=== PATIENT | female | born 1980 | race Caucasian/White ===

== ENCOUNTER 2019-10-31 17:14 | Emergency (ER) | payer MEDICAID ==
[~2019-10-31] VITALS: Ht 160 cm; Wt 51.9 kg
[2019-10-31 18:06] VITALS: BP 121/74
--- NOTE | 2019-10-31 18:46 | PHYS DOC ---
Past Medical History Past Medical History: Asthma Past Surgical History: Tonsillectomy Additional Past Surgical Histo: WRIST Smoking Status: Current Every Day Smoker Alcohol Use: None General Adult EDM: Chief Complaint: SORE THROAT HPI: HPI: Patient is a 39 year old female who presents with complaints of a sore throat today. Patient does have a history of allergic rhinitis and allergic asthma and actually carries an EpiPen around with her. Patient reports that she is not having any difficulty with cough or shortness of breath at this time but is concerned about the amount of pain that she is having with swallowing. She does complain of some upper respiratory congestion and postnasal drip but denied any fever, chills, sweats. She also denies any chest pain or shortness of breath. No sick contacts. Patient brings her daughter in with her with similar symptoms. Review of Systems: Review of Systems: Constitutional: Denies fever or chills. [] Eyes: Denies change in visual acuity. [] HENT: See HPI. [] Respiratory: Denies cough or shortness of breath. [] Cardiovascular: Denies chest pain or edema. [] Heart Score: Risk Factors: Risk Factors: DM, Current or recent (<one month) smoker, HTN, HLP, family history of CAD, obesity. Risk Scores: Score 0 - 3: 2.5% MACE over next 6 weeks - Discharge Home Score 4 - 6: 20.3% MACE over next 6 weeks - Admit for Clinical Observation Score 7 - 10: 72.7% MACE over next 6 weeks - Early Invasive Strategies Allergies: Allergies: Allergies Coded Allergies Type Severity Reaction Last Updated Verified Penicillins Allergy Severe HIVES 10/31/19 Yes Physical Exam: PE: Constitutional: Well developed, well nourished, no acute distress, non-toxic appearance. [] HENT: Normocephalic, atraumatic, bilateral external ears normal, TMs bilaterally with some mild air-fluid levels without erythema or exudative changes, posterior oropharynx with mild erythema and cobblestoning, no exudative changes. Nasal mucosa were pale, no blood in the nares.. [] Eyes: PERRLA, EOMI, conjunctiva normal, no discharge. [] Neck: Normal range of motion, no tenderness, supple, no stridor. [] Current Patient Data: Vital Signs: Vital Signs Date Time Temp Pulse Resp B/P (MAP) Pulse Ox O2 Delivery O2 Flow Rate FiO2 10/31/19 18:06 98.2 66 18 121/74 (90) 100 Room Air 98.2 EKG: EKG: [] Radiology/Procedures: Radiology/Procedures: [] Course & Med Decision Making: Course & Med Decision Making Pertinent Labs and Imaging studies reviewed. (See chart for details) 1844-the patient was seen and examined. No evidence of an exigent medical or surgical problems identified at this time. Patient did not appear to be in any respiratory distress and is not concerned about her breathing at this time. I discussed with her treatment plan including Depo-Medrol, Flonase and [id number] decongestant antihistamines. No role for antibiotics at this time. I discussed reasons to return, treatment plan and need for follow-up. [] Brianna Disclaimer: Brianna Disclaimer: This electronic medical record was generated, in whole or in part, using a voice recognition dictation system. Departure Departure Impression: Primary Impression: Allergic rhinitis Disposition: 01 HOME, SELF-CARE Condition: GOOD Referrals: UNKNOWN PCP NAME (PCP) Patient Instructions: Allergic Rhinitis Additional Instructions: Please follow-up with the primary care contact provided. Justicifation of Admission Dx: Justifications for Admission: Justification of Admission Dx: N/A ROSETTA BENRSTEIN MD Oct 31, 2019 18:45
[2019-10-31] MEDS: methylPREDNISolone ACETATE 80 MG/ML VIAL. IM ONE (19:07)
== END 2019-10-31 19:15 | disposition home or self-care (01) ==
LOC: ER 17:14
DX: J30.9 Allergic rhinitis, unspecified (principal); R09.81 Nasal congestion; L53.9 Erythematous condition, unspecified; J45.909 Unspecified asthma, uncomplicated; F17.200 Nicotine dependence, unspecified, uncomplicated; Z98.890 Other specified postprocedural states; Z88.0 Allergy status to penicillin
CPT/HCPCS: 87070; 87880; 96372; 99283; J1040